=== PATIENT | female | born 1955 | race Caucasian/White ===

== ENCOUNTER 2018-11-25 09:10 | Day surgery (SDC) | payer OTHER ==
[~2018-11-25] VITALS: Ht 157.5 cm; Wt 82.7 kg
[~2018-11-25 09:10] MED LIST: ADV50050 IH; BENA10TA PO; LEVA15HF6 IH; MONT10TA21 PO; NAPR500T8 PO
[2018-11-25 10:22] VITALS: Ht 157.5 cm; Wt 82.7 kg
[2018-11-25 10:44] VITALS: BP 121/62; PULSE 80; RESP 24
--- NOTE | 2018-11-25 10:46 | PREAC ---
Date/Time of Note Date/Time of Note DATE: 11/25/18 TIME: 10:44 Anesthesia Eval and Record Evaluation Time Pre-Procedure Interview DATE: 11/25/18 TIME: 10:44 Age 63 Sex female NPO: 8 hrs Preoperative diagnosis colon screening Planned procedure Colonoscopy Past Medical History Past Medical History: Includes Cardio: HTN, Dyslipidemia Endo: Diabetes Pulm: Asthma Surgery & Anesthesia Issues No known issue Meds Anticoagulation: No Beta Immanuel within 24 hr: No Reason Beta Immanuel not given: Pt. not on B-Immanuel Reported Medications Benazepril Hcl* (Lotensin*) 10 Mg Tablet, 10 MG PO 09/25/12 Naproxen* (Naproxen EC*) 500 Mg Tablet.dr, 500 MG PO 09/25/12 Montelukast Sodium* (Singulair*) 10 Mg Tablet, 10 MG PO 09/25/12 Salmeterol Xinaf/Fluticasone* (Advair 500/50 Diskus*) 1 Inh Inha, 1 INH IH 09/25/12 Levalbuterol* (Xopenex* HFA) 15 Gm Inha, 15 GM IH 09/25/12 Meds reviewed: Yes Allergies Coded Allergies: No Known Allergy (Unverified , 09/25/12) Allergies Reviewed: Yes Labs/Studies Labs Reviewed: Reviewed by anesthesiologist test: N/A Studies: ECG Pre-procedure Exam Last vitals BP:126/67, P:74, Spo2:100%, T:98,9 Airway: Adequate mouth opening, Adequate thyromental dist Mallampati: Mallampati II Teeth: Normal Lung: Normal Heart: Normal ASA Physical Status ASA physical status: 2 Emergency: None Planned Anesthetic General/MAC: MAC Planned Pain Management Parenteral pain med Pre-operative Attestations Prior to commencing anesthesia and surgery, the patient was re-evaluated, there was verification of: *The patient's identity *The results of appropriate recent lab work and preoperative vital signs *The above evaluation not changing prior to induction *Anesthetic plan, risk benefits, alternative and complications discussed with patient/family; questions answered; patient/family understands, accepts and wishes to proceed. GLENN SWIFT MD Nov 25, 2018 10:46
[2018-11-25] MEDS ORDERED: LIDOCAINE 2% (SDV) 5 ML INJ ONE (10:47)
[2018-11-25] MEDS ORDERED: PROPOFOL 60 ML ONE (10:47)
[2018-11-25] MEDS ORDERED: JANUVIA PO (11:09)
[2018-11-25] MEDS ORDERED: AMLODIPINE PO (11:09)
--- NOTE | 2018-11-25 11:14 | PAC ---
Date/Time of Note Date/Time of Note DATE: 11/25/18 TIME: 11:13 Post-Anesthesia Notes Post-Anesthesia Note Last documented vital signs Vital Signs Date Temp Pulse Resp B/P (MAP) Pulse Ox O2 O2 Flow FiO2 Time Delivery Rate 11/25/18 98.0 80 24 121/62 94 Room Air 10:44 (81) Activity: WNL Respiratory function: WNL Cardiovascular function: WNL Mental status: Baseline Pain reasonably controlled: Yes Hydration appropriate: Yes Nausea/Vomiting absent: Yes Comments BP:112/56, P:74, Spo2:100%, T:98,6 GLENN SWIFT MD Nov 25, 2018 11:14
[2018-11-25 11:15] VITALS: BP 113/68; PULSE 68; RESP 20
[2018-11-25 11:30] VITALS: BP 118/69; PULSE 67; RESP 20
[2018-11-25 11:45] VITALS: BP 123/68; PULSE 70; RESP 20
== END 2018-11-25 11:41 | disposition home or self-care (01) ==
LOC: GIL 09:10
PROVIDERS: ATTEND Internal Medicine Gastroenterology
DX: Z12.11 Encounter for screening for malignant neoplasm of colon (principal); K64.8 Other hemorrhoids; I10 Essential (primary) hypertension; E11.9 Type 2 diabetes mellitus without complications; J45.909 Unspecified asthma, uncomplicated; E78.5 Hyperlipidemia, unspecified
CPT/HCPCS: 45378; 82962; Z7610

== ENCOUNTER 2019-05-28 15:37 | Emergency (ER) | payer OTHER ==
[~2019-05-28] VITALS: Ht 162.6 cm; Wt 80.9 kg
[~2019-05-28 15:37] MED LIST changes: +AMLODIPINE PO; -BENA10TA PO; +JANUVIA PO; -MONT10TA21 PO
[2019-05-28 15:40] VITALS: Ht 162.6 cm; Wt 80.9 kg
[2019-05-28] MEDS ORDERED: KETOROLAC 30 MG INJ IM STA (16:58)
== END 2019-05-28 19:08 | disposition home or self-care (01) ==
LOC: FTE 15:37
DX: M17.12 Unilateral primary osteoarthritis, left knee (principal); M25.462 Effusion, left knee; I10 Essential (primary) hypertension; J45.909 Unspecified asthma, uncomplicated; E11.9 Type 2 diabetes mellitus without complications
CPT/HCPCS: 29505; 73562; 96372; J1885; Z7502; Z7610